=== PATIENT | female | born 2000 | race Caucasian/White ===

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

== ENCOUNTER → 2018-01-17 | Outpatient (CLI) | payer SELFPAY ==
--- NOTE | 2018-01-17 10:46 | Diagnostic Imaging Report ---
INDICATION: Low back pain, trauma. COMPARISON: None. FINDINGS: Three views of the lumbar column demonstrate normal alignment. There is no subluxation or fracture. No degeneration or osseous lesion. IMPRESSION: Negative lumbar spine. Dictated by: Dictated on workstation # [id number]
--- NOTE | 2018-01-17 10:46 | Diagnostic Imaging Report ---
INDICATION: Neck pain and trauma. COMPARISON: None. FINDINGS: Three views of the cervical column demonstrate normal alignment. There is no subluxation or fracture. No degeneration. IMPRESSION: Negative cervical spine. Dictated by: Dictated on workstation # [id number]
--- NOTE | 2018-01-17 10:46 | Diagnostic Imaging Report ---
INDICATION: Mid back pain and trauma. COMPARISON: None. FINDINGS: Three views of the thoracic column demonstrate normal alignment. There is no subluxation or fracture. No degeneration. IMPRESSION: Negative thoracic spine. Dictated by: Dictated on workstation # [id number]
== END ==
LOC: RAD 09:20
PROVIDERS: ATTEND Nurse Practitioner Family
DX: T14.8XXA Other injury of unspecified body region, initial encounter (principal)
CPT/HCPCS: 72040; 72072; 72100

== ENCOUNTER 2022-05-02 20:34 | Emergency (ER) | payer SELFPAY ==
[~2022-05-02] VITALS: Ht 155 cm; Wt 152.0 kg
[~2022-05-02 20:34] MED LIST changes: -SULF1TAB35 PO; +SULF1TAB38 PO
--- NOTE | 2022-05-02 21:06 | ED Abdominal Pain ---
General Chief Complaint: Abdominal/GI Problems Stated Complaint: UPPER ABD PAIN Nursing Triage Note: c/o cramping epigastric pain radiating to ruq today. Source of Information: Patient History of Present Illness Date Seen by Provider: May 02, 2022 Time Seen by Provider: 20:52 Initial Comments PT ARRIVES VIA POV FROM HOME C/O ABDOMINAL PAIN SINCE THIS MORNING PAIN IS IN EPIGASTRIC AREA, AND RADIATES TO RUQ AND AROUND TO RIGHT BACK PAIN IS CONSTANT, AND NOTHING WORSENS OR IMPROVES PAIN HAS NOT TAKEN ANYTHING FOR PAIN + NAUSEA, NO VOMITING HAD A NORMAL BM TODAY NO URINARY SYMPTOMS NO MANAGER SIMULATION SYMPTOMS NO FEVER NO COUGH OR SHORTNESS OF BREATH NO CHEST PAIN LAST ATE A COUPLE OF HOURS AGO LMP 04/18/22. NORMAL. NO CONTROL HAS NOT TAKEN ANYTHING FOR PAIN DENIES HISTORY OF SIMILAR NO PRIOR ABDOMINAL SURGERIES NO GI//MANAGER SIMULATION PROBLEMS DOES NOT TAKE ANY MEDICATIONS FOR ANYTHING. DENIES ANY MEDICAL PROBLEMS OF ANY KIND ON REVIEW OF OLD RECORDS, PT WAS SEEN HERE IN NOVEMBER OF THIS YEAR FOR THIS SAME COMPLAINT AND HAD CT AND ULTRASOUND DONE, AND SHOWED [facility] AND WAS REFERRED TO DR. GILBERT PT NEVER FOLLOWED UP INSTRUCTED. [facility]--HAS NEVER SEEN A PROVIDER FOR ROUTINE MEDICAL CARE Allergies and Home Medications Allergies Coded Allergies: Penicillins (Unverified Allergy, Mild, 03/08/09) Patient Home Medication List Home Medication List Reviewed: Yes Dicyclomine HCl (Dicyclomine HCl) 20 Mg Tablet, 20 MG PO Q6H Prescribed by: STELLA GUERRERO on 05/02/222157 Hyoscyamine Sulfate (Levsin-Sl) 0.125 Mg Tab.subl, 0.25 MG SL Q4H Prescribed by: STELLA GUERRERO on 05/02/222157 Ondansetron (Ondansetron Odt) 4 Mg Tab.rapdis, 4 MG PO Q4H Prescribed by: STELLA GUERRERO on 05/02/222157 Discontinued Medications Cetirizine Hcl (Zyrtec) 10 Mg Capsule, 10 MG PO DAILY, (Reported) Discontinued Reason: No Longer Taking Entered as Reported by: PENNY WHITEHEAD on 01/25/14 1252 Last Action: Discontinued Clindamycin Hcl (Clindamycin Hcl) 300 Mg Capsule, 300 MG PO Q6H Discontinued Reason: No Longer Taking Prescribed by: FABIEN GARIBAY on 01/25/14 1436 Last Action: Discontinued Hydrocodone Bit/Acetaminophen (Hydrocodone-Apap 5-325 Tablet) 1 Tab Tablet, 1 TAB PO Q4H PRN for PAIN Discontinued Reason: No Longer Taking Prescribed by: FABIEN GARIBAY on 01/25/14 1437 Last Action: Discontinued Sulfamethoxazole/Trimethoprim (Bactrim Ds Tablet) 1 Each Tablet, 1 EACH PO BID Discontinued Reason: No Longer Taking Prescribed by: TALA JOHNSON on 02/24/171 Last Action: Discontinued [Med For Depression] , DAILY, (Reported) Discontinued Reason: No Longer Taking Entered as Reported by: PENNY WHITEHEAD on 01/25/14 1252 Last Action: Discontinued Review of Systems Review of Systems Constitutional: no symptoms reported Respiratory: No Symptoms Reported Cardiovascular: No Symptoms Reported Gastrointestinal: See HPI, Abdominal Pain; Denies Constipated, Denies Diarrhea; Nausea; Denies Poor Appetite, Denies Vomiting Genitourinary: No Symptoms Reported Musculoskeletal: see HPI, back pain Skin: no symptoms reported Psychiatric/Neurological: No Symptoms Reported Endocrine: No Symptoms Reported Hematologic/Lymphatic: No Symptoms Reported Past Kzezdtd-Boirwv-Wmznok Hx Patient Social History Tobacco Use?: No Substance use?: Yes Substance type: Marijuana Alcohol Use?: No Pt feels they are or have been: No Immunizations Up To Date Tetanus Booster (TDap): Less than 5yrs PED Vaccines UTD: Yes First/Initial COVID19 Vaccinat: x2 Past Medical History Surgery/Hospitalization HX: knee x4, wrist x1 Surgeries: Yes Orthopedic, Tonsillectomy Respiratory: Yes Asthma Cardiac: No Neurological: No : No Last Menstrual Period: Apr 18, 2022 Reproductive Disorders: No Sexually Transmitted Disease: No Genitourinary: No Gastrointestinal: No Musculoskeletal: Yes (ORTHOPEDIC SURGERIES) Endocrine: Yes (MORBIDLY OBESE) Cancer: No Psychosocial: Yes Depression Integumentary: No Blood Disorders: No Physical Exam Vital Signs Vital Signs - First Documented 05/02/22 20:38 Temp 36.4 Pulse 86 Resp 16 B/P (MAP) 186/98 (127) Pulse Ox 99 O2 Delivery Room Air Capillary Refill : Less Than 3 Seconds Height/Weight/BMI Height: 5'1.00" Weight: 280lbs. oz. [id number]; 63.00 BMI Method:Stated General Appearance: WD/WN, no apparent distress, obese (MORBIDLY OBESE), other (WALKS UPRIGHT AND MOVES WITHOUT DIFFICULTY. LAYING OUTSTRETCHED WITH ARMS OVERHEAD. TEXTING/PLAYING AND TALKING ON PHONE THROUGHOUT EXAM AND DURING ER STAY. VERY NON-CHALANT. DOES NOT APPEAR TO BE IN ILL OR TO BE IN ANY DISCOMFORT OR DISTRESS. 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, no motor/sensory deficits, alert, normal mood/affect, oriented x 3 Skin: normal color, warm/dry, tattoos/piercings (TATTOOS) Progress/Results/Core Measures Results/Orders Lab Results Laboratory Tests Test 05/02/22 21:05 Range/Units White Blood Count 10.8 4.3-11.0 10^3/uL Red Blood Count 4.57 3.80-5.11 10^6/uL Hemoglobin 10.5 L 11.5-16.0 g/dL Hematocrit 34 L 35-52 % Mean Corpuscular Volume 74 L 80-99 fL Mean Corpuscular Hemoglobin 23 L 25-34 pg Mean Corpuscular Hemoglobin Concent 31 L 32-36 g/dL Red Cell Distribution Width 13.9 10.0-14.5 % Platelet Count 375 130-400 10^3/uL Mean Platelet Volume 11.4 9.0-12.2 fL Immature Granulocyte % (Auto) 0 % Neutrophils (%) (Auto) 55 42-75 % Lymphocytes (%) (Auto) 37 12-44 % Monocytes (%) (Auto) 6 0-12 % Eosinophils (%) (Auto) 1 0-10 % Basophils (%) (Auto) 1 0-10 % Neutrophils # (Auto) 5.9 1.8-7.8 10^3/uL Lymphocytes # (Auto) 3.9 1.0-4.0 10^3/uL Monocytes # (Auto) 0.7 0.0-1.0 10^3/uL Eosinophils # (Auto) 0.1 0.0-0.3 10^3/uL Basophils # (Auto) 0.1 0.0-0.1 10^3/uL Immature Granulocyte # (Auto) 0.0 0.0-0.1 10^3/uL Urine Color YELLOW Urine Clarity CLEAR Urine pH 7.0 5-9 Urine Specific [place] 1.015 L 1.016-1.022 Urine Protein NEGATIVE NEGATIVE Urine Glucose (UA) NEGATIVE NEGATIVE Urine Ketones NEGATIVE NEGATIVE Urine Nitrite NEGATIVE NEGATIVE Urine Bilirubin NEGATIVE NEGATIVE Urine Urobilinogen 1.0 < = 1.0 MG/DL Urine Leukocyte Esterase 2+ H NEGATIVE Urine RBC (Auto) NEGATIVE NEGATIVE Urine RBC NONE /HPF Urine WBC 0-2 /HPF Urine Squamous Epithelial Cells 2-5 /HPF Urine Crystals NONE /LPF Urine Bacteria NEGATIVE /HPF Urine Casts NONE /LPF Urine Mucus NEGATIVE /LPF Urine Culture Indicated NO Sodium Level 140 135-145 MMOL/L Potassium Level 3.9 3.6-5.0 MMOL/L Chloride Level 104 98-107 MMOL/L Carbon Dioxide Level 23 21-32 MMOL/L Anion Gap 13 5-14 MMOL/L Blood Urea Nitrogen 9 7-18 MG/DL Creatinine 0.76 0.60-1.30 MG/DL Estimat Glomerular Filtration Rate 113 BUN/Creatinine Ratio 12 Glucose Level 87 70-105 MG/DL Calcium Level 8.9 8.5-10.1 MG/DL Corrected Calcium 8.9 8.5-10.1 MG/DL Total Bilirubin 0.3 0.1-1.0 MG/DL Aspartate Amino Transf (AST/SGOT) 20 5-34 U/L Alanine Aminotransferase (ALT/SGPT) 14 0-55 U/L Alkaline Phosphatase 103 40-136 U/L Total Protein 7.3 6.4-8.2 GM/DL Albumin 4.0 3.2-4.5 GM/DL Amylase Level 75 25-125 U/L Lipase 45 8-78 U/L Urine Opiates Screen NEGATIVE NEGATIVE Urine Oxycodone Screen NEGATIVE NEGATIVE Urine Methadone Screen NEGATIVE NEGATIVE Urine Propoxyphene Screen NEGATIVE NEGATIVE Urine Barbiturates Screen NEGATIVE NEGATIVE Ur Tricyclic Antidepressants Screen NEGATIVE NEGATIVE Urine Phencyclidine Screen NEGATIVE NEGATIVE Urine Amphetamines Screen NEGATIVE NEGATIVE Urine Methamphetamines Screen NEGATIVE NEGATIVE Urine Benzodiazepines Screen NEGATIVE NEGATIVE Urine Cocaine Screen NEGATIVE NEGATIVE Urine Cannabinoids Screen POSITIVE H NEGATIVE My Orders Orders - STELLA GUERRERO DO Ed Iv/Invasive Line Start (05/02/22 20:59) Urine Bedside (05/02/22 20:59) Amylase (05/02/22 20:59) Cbc With Automated Diff (05/02/22 20:59) Comprehensive Metabolic Panel (05/02/22 20:59) Lipase (05/02/22 20:59) Ua Culture If Indicated (05/02/22 20:59) Drug Screen Stat (Urine) (05/02/22 21:06) Rx-Hyoscyamine Tab (Rx-Levsin Sl) (05/02/22 21:57) Rx-Dicyclomine Capsule (Rx-Bentyl Capsul (05/02/22 21:57) Rx-Ondansetron Po (Rx-Zofran Po) (05/02/22 21:57) Vital Signs/I&O 05/02/22 05/02/22 20:38 22:01 Temp 36.4 36.3 Pulse 86 79 Resp 16 16 B/P (MAP) 186/98 (127) 174/88 Pulse Ox 99 100 O2 Delivery Room Air Room Air Blood Pressure Mean: 127 Progress Progress Note : Progress Note UNEVENTFUL ER STAY Departure Impression Primary Impression: RUQ pain Additional Impressions: Biliary colic Hx of gallstones Marijuana use Disposition: 01 HOME, SELF-CARE Condition: Stable Departure-Patient Inst. Decision time for Depature: 21:55 Referrals: KUSH GILBERT DO [facility] Patient Instructions: Gallstones ED Add. Discharge Instructions: CLEAR LIQUIDS--WATER, BROTH, JELLO, GATORADE NO FOOD UNTIL YOUR PAIN IS GONE, THEN START A BRATS DIET--BANANAS, RICE, APPLESAUCE, TOAST, SALTINES--AND CONTINUE CLEAR LIQUIDS FOLLOW UP WITH DR. GILBERT THIS WEEK--CALL IN THE MORNING TO SCHEDULE APPOINTMENT All discharge instructions reviewed with patient and/or family. Voiced understanding. Scripts Ondansetron (Ondansetron Odt) 4 Mg Tab.rapdis 4 MG PO Q4H for Nausea/Vomiting, #10 TAB Prov: STELLA GUERRERO DO 05/02/22 Dicyclomine HCl (Dicyclomine HCl) 20 Mg Tablet 20 MG PO Q6H for Abdominal Pain, #20 TAB Prov: STELLA GUERRERO DO 05/02/22 Hyoscyamine Sulfate (Levsin-Sl) 0.125 Mg Tab.subl 0.25 MG SL Q4H, #10 TAB Prov: STELLA GUERRERO DO 05/02/22 STELLA GUERRERO DO May 02, 2022 21:06
[2022-05-02 21:14] LABS: BASOPHILS # (AUTO) 0.1 10^3/uL (0.0-0.1); BASOPHILS % (AUTO) 1 % (0-10); BILIRUBIN,URINE NEGATIVE (NEGATIVE); CLARITY,URINE CLEAR; COLOR,URINE YELLOW; EOSINOPHILS # (AUTO) 0.1 10^3/uL (0.0-0.3); EOSINOPHILS % (AUTO) 1 % (0-10); GLUCOSE, URINE (UA) NEGATIVE (NEGATIVE); HEMATOCRIT 34 % (35-52); HEMOGLOBIN 10.5 g/dL (11.5-16.0); KETONES,URINE NEGATIVE (NEGATIVE); LEUKOCYTE ESTERASE ,URINE 2+ (NEGATIVE); LYMPHOCYTES # (AUTO) 3.9 10^3/uL (1.0-4.0); LYMPHOCYTES % (AUTO) 37 % (12-44); MEAN CORPUSCULAR HEMOGLOBIN 23 pg (25-34); MEAN CORPUSCULAR HGB CONC 31 g/dL (32-36); MEAN CORPUSCULAR VOLUME 74 fL (80-99); MEAN PLATELET VOLUME 11.4 fL (9.0-12.2); MONOCYTES # (AUTO) 0.7 10^3/uL (0.0-1.0); MONOCYTES % (AUTO) 6 % (0-12); NEUTROPHILS # (AUTO) 5.9 10^3/uL (1.8-7.8); NEUTROPHILS % (AUTO) 55 % (42-75); NITRITE,URINE NEGATIVE (NEGATIVE); PLATELET COUNT 375 10^3/uL (130-400); PROTEIN,URINE NEGATIVE (NEGATIVE); WHITE BLOOD COUNT 10.8 10^3/uL (4.3-11.0)
[2022-05-02 21:23] LABS: BACTERIA,URINE NEGATIVE /HPF; WBC,URINE 0-2 /HPF
[2022-05-02 21:28] LABS: POTASSIUM 3.9 MMOL/L (3.6-5.0)
[2022-05-02 21:29] LABS: CALCIUM 8.9 MG/DL (8.5-10.1)
[2022-05-02 21:30] LABS: TOTAL PROTEIN 7.3 GM/DL (6.4-8.2)
[2022-05-02 21:32] LABS: BILIRUBIN,TOTAL 0.3 MG/DL (0.1-1.0)
[2022-05-02 21:34] LABS: CREATININE SERUM 0.76 MG/DL (0.60-1.30)
[2022-05-02 21:38] LABS: AMPHETAMINE SCREEN, URINE NEGATIVE (NEGATIVE); BARBITURATE SCREEN URINE NEGATIVE (NEGATIVE); BENZODIAZEPINES SCREEN URINE NEGATIVE (NEGATIVE); CANNABINOID SCREEN, URINE POSITIVE (NEGATIVE); COCAINE SCREEN URINE NEGATIVE (NEGATIVE); METHADONE STAT NEGATIVE (NEGATIVE); OPIATE SCREEN URINE NEGATIVE (NEGATIVE); OXYCODONE STAT NEGATIVE (NEGATIVE); PROPOXYPHENE STAT NEGATIVE (NEGATIVE); TRICYCLIC ANTIDEPRESSANTS SCRE NEGATIVE (NEGATIVE)
[2022-05-02] MEDS ORDERED: RX-HYOSCYAMINE 0.125 MG SL (LEVSIN) PPK#6 SL STA (21:57)
[2022-05-02] MEDS ORDERED: RX-DICYCLOMINE 10 MG (BENTYL) CAP PPK#4 PO STA (21:57)
[2022-05-02] MEDS ORDERED: RX-ONDANSETRON 4 MG ODT (ZOFRAN) PPK #4 PO STA (21:57)
[2022-05-02] MEDS ORDERED: DICY20TA PO (21:58)
[2022-05-02] MEDS ORDERED: HYOS0.1283 SL (21:58)
[2022-05-02] MEDS ORDERED: ONDA4TAB11 PO (21:58)
[2022-05-02 22:01] VITALS: BP 174/88
== END 2022-05-02 22:01 | disposition home or self-care (01) ==
LOC: EDUNIT# 20:34 → ER 20:36
DX: F12.90 Cannabis use, unspecified, uncomplicated (principal); K80.50 Calculus of bile duct without cholangitis or cholecystitis without obstruction; E66.01 Morbid (severe) obesity due to excess calories; Z68.44 Body mass index [BMI] 60.0-69.9, adult
CPT/HCPCS: 36415; 80053; 80306; 81000; 82150; 83690; 84703; 85025

== ENCOUNTER 2022-06-23 05:32 | Outpatient (CLI) | payer OTHER ==
[~2022-06-23] VITALS: Ht 157.5 cm; Wt 160.1 kg
[~2022-06-23 05:32] MED LIST changes: +DICY20TA PO; +HYOS0.1283 SL; +ONDA4TAB11 PO
== END 2022-06-24 11:15 | disposition home or self-care (01) ==
LOC: PREOP 05:32
PROVIDERS: ATTEND Surgery
DX: Z01.818 Encounter for other preprocedural examination (principal)

== ENCOUNTER 2022-06-30 08:22 | Day surgery (SDC) | payer OTHER ==
[~2022-06-30] VITALS: Ht 157.4 cm; Wt 160.1 kg
[2022-06-30] VITALS (10 sets, daily range): BP systolic 122–135; BP diastolic 68–83
[2022-06-30] MEDS ORDERED: BUPIVACAINE 0.25% 30 ML (SENSORCAINE) VIAL ONE (08:35)
--- NOTE | 2022-06-30 08:40 | Progress Note-Pre Operative ---
Pre-Operative Progress Note Date of Available H&P: Jun 21, 2022 Date H&P Reviewed: Jun 30, 2022 Time H&P Reviewed: 08:39 History & Physical: H&P Reviewed, Patient Examed, No changes noted Pre-Operative Diagnosis: cholelithiasis KUSH GILBERT DO Jun 30, 2022 08:40
[2022-06-30] MEDS ORDERED: CLINDAMYCIN 600 MG/50 ML IVPB 50 ML IV ONE ×2 (09:12→09:30)
[2022-06-30] MEDS: LACTATED RINGERS 1,000 ML IV PRN ×2 (09:17→10:57)
[2022-06-30] MEDS ORDERED: ROCURONIUM 10 MG/ML 5 ML SYRINGE IV ONE (09:40)
[2022-06-30] MEDS ORDERED: LIDOCAINE PF 2% 5 ML (XYLOCAINE) VIAL ONE (09:40)
[2022-06-30] MEDS ORDERED: fentaNYL INJ 100 MCG/2 ML AMP ONE ×2 (09:40→10:42)
[2022-06-30] MEDS ORDERED: SEVOFLURANE (ULTANE) 15 ML INHAL SOLN ONE ×2 (09:40→11:23)
[2022-06-30] MEDS ORDERED: proPOfol 200 MG/20 ML (DIPRIVAN) VIAL IV ONE (09:40)
[2022-06-30] MEDS ORDERED: MIDAZOLAM 2 MG/2 ML (VERSED) VIAL ONE (09:40)
[2022-06-30] MEDS ORDERED: ONDANSETRON 4 MG/2 ML (SDV) Z0FRAN ONE ×2 (09:40→13:32)
[2022-06-30] MEDS ORDERED: EPINEPHrine INJECTION 1 MG/ML AMP ONE (10:25)
[2022-06-30] MEDS ORDERED: IOHEXOL 300 MG/ML 30 ML (OMNIPAQUE 300) VIAL INJ ONE (11:03)
[2022-06-30] MEDS ORDERED: ACHD5005 PO (11:38)
[2022-06-30] MEDS ORDERED: DOCU-143 PO (11:38)
--- NOTE | 2022-06-30 11:41 | Discharge Inst-Simple/Standard ---
Discharge Inst-Standard Patient Instructions/Follow Up Plan of Care/Instructions/FU: 2 weeks saray Activity as Tolerated: No Discharge Diet: Regular Diet Other Inst to Patient Follow up Appt: Make appointment for 2 weeks. Instructions: No lifting greater than 10 pounds. No strenuous activity. May shower in 24 hours, no tub bath or soaking. Use incentive spirometer at home as directed. No Smoking Skin/Wound Care: You have special glue over incision, it will fall off on it's own. Symptoms to Report: Appetite Changes, Extremity Discoloration, Numbness/Tingling, Swelling Increased, Bleeding Excessive, Eyesight Changes, Pain Increased, Urine Color Change, Constipation(Persistent), Fever over 101 degree F, Pain/Pressure in chest, Urinating Difficulty, Cough Up/Vomit Blood, Heart Beat Irreg/Pounding, Pain/Pressure in jaw, Vaginal Bleeding Increase, Cramps in feet or legs, Lightheadedness, Pain/Pressure in shoulder, Diarrhea(Persistent), Memory Changes Suddenly, Questions/Concerns, Weight gain consecutive days, Dizziness/Fainting, Nausea/Vomiting, Shortness of Breath, Weight gain over 2 pounds. If eyes or skin turn yellow notify physician. If questions or concerns contact your physician Or seek help at emergency department. KUSH GILBERT DO Jun 30, 2022 11:41
--- NOTE | 2022-06-30 11:47 | Progress Note-Post Operative ---
Post-Operative Progess Note Surgeon (s)/[place] (s) Surgeon KUSH GILBERT DO [place]: Dr. guzman to assist in retraction dissection and closure. Pre-Operative Diagnosis cholelithiasis, morbid obesity Post-Operative Diagnosis same Procedure & Operative Findings Date of Procedure 06/30/22 Procedure Performed/Findings PROCEDURE: Laparoscopic cholecystectomy with intraoperative cholangiogram. COMPLICATIONS: None. PROCEDURE: The patient was taken to the operating suite and was prepped and draped in sterile fashion. A surgical pause was performed. Just superior to the umbilicus, a 12 mm incision was made. Dissection was taken down to the fascia, which was then scored and grasped with a Quin and the abdomen was then entered. A 0 Vicryl suture was placed in a [id number] fashion and a Darling trocar was placed and secured. Pneumoperitoneum was achieved. A 5mm trochar place in the subxyphoid and 2 in the right upper quadrant. The gallbladder was then grasped and elevated. The cystic duct, and cystic artery were then dissected out. Clip was placed on the distal portion of the cystic duct which was then partially transected. An arrow catheter was inserted into the duct. The cholangiogram was then performed. No filing defects and contrast made its way into the duodenum. Catheter removed. Clips were placed on proximal portion of the cystic duct and then the duct was then transected. Clips were placed along the proximal and distal portion of the cystic artery which was then transected. Hook cautery was used to dissect the gallbladder from the gallbladder fossa achieving hemostasis. The gallbladder was placed in an Endobag and removed through the 12 mm trocar site. The abdomen was then reinspected. Copious amounts of irrigation were used to irrigate the abdomen and there were no signs of active bleeding. Hemostasis had been achieved. The 12 mm fascial defect was then closed with 0 Vicryl suture that had been placed in a [id number] fashion. The abdomen was then desufflated, the trocars were removed. The abdomen was then washed and dried. The skin was then closed using 4-0 Monocryl in a subcuticular fashion. The abdomen was washed and dried and Skin Affix was place over incisions. Patient tolerated the procedure well without any complications and was taken to the recovery room in stable condition. Anesthesia Type general Estimated Blood Loss Estimated blood loss (mL): minimal Specimens/Packing Specimens Removed gallbladder KUSH GILBERT DO Jun 30, 2022 11:47
[2022-06-30] MEDS ORDERED: fentaNYL INJ 100 MCG/2 ML AMP IVP ONE (12:00)
[2022-06-30] MEDS ORDERED: morphine INJ 10 MG/ML 1ML (SYR OR VIAL) IVP ONE (12:00)
[2022-06-30] MEDS ORDERED: ONDANSETRON 4 MG/2 ML (SDV) Z0FRAN IVP PRN (12:00)
[2022-06-30] MEDS ORDERED: MEPERIDINE (DEMEROL) INJ 50 MG/ML IVP ONE (12:00)
--- NOTE | 2022-06-30 12:01 | Anesthesia-General Post-Op ---
General Patient Condition Mental Status/LOC: Same as Preop Cardiovascular: Satisfactory Nausea/Vomiting: Absent Respiratory: Satisfactory Pain: Controlled Complications: Absent Post Op Complications Complications None Follow Up Care/Instructions Patient Instructions None needed. Anesthesia/Patient Condition Patient Condition Patient is doing well, no complaints, stable vital signs, no apparent adverse anesthesia problems. No complications reported per nursing. JULIA RYAN CRNA Jun 30, 2022 12:01
[2022-06-30] MEDS ORDERED: morphine INJ 10 MG/ML 1ML (SYR OR VIAL) ONE (12:07)
[2022-06-30] MEDS ORDERED: HYDROcodone/APAP 5 MG/325 MG (LORTAB) TAB PO ONE (13:00)
[2022-06-30] MEDS ORDERED: HYDROcodone/APAP 5 MG/325 MG (LORTAB) TAB ONE (13:03)
[2022-06-30] MEDS ORDERED: ONDANSETRON 4 MG/2 ML (SDV) Z0FRAN IVP ONE (13:45)
--- NOTE | 2022-06-30 17:27 | Diagnostic Imaging Report ---
History: 21 years-old female with cholangiogram following laparoscopic cholecystectomy. Comparison: None. Technique: 33 intraoperative fluoroscopic images of the abdomen in the frontal projection. Fluoroscopic Time: 16.9 seconds. Findings: Intraoperative fluoroscopic images were obtained during injection of contrast into the biliary tract. The common bile duct does not appear distended and no filling defects are seen. Contrast flows into the small bowel. Impression: Fluoroscopic intraoperative images obtained during cholangiogram with no biliary dilatation or obstruction seen. Dictated by: Dictated on workstation # [id number]
== END 2022-06-30 13:50 ==
LOC: SDC 08:22
PROVIDERS: ATTEND Surgery
DX: K80.10 Calculus of gallbladder with chronic cholecystitis without obstruction (principal); E66.01 Morbid (severe) obesity due to excess calories; Z68.44 Body mass index [BMI] 60.0-69.9, adult; F12.90 Cannabis use, unspecified, uncomplicated
CPT/HCPCS: 76000; 84703; 87081; 88304

== ENCOUNTER 2023-06-29 20:37 | Emergency (ER) | payer OTHER ==
[~2023-06-29] VITALS: Ht 155 cm; Wt 135.0 kg
[~2023-06-29 20:37] MED LIST changes: +ACHD5005 PO; +DOCU-143 PO
[2023-06-29 20:57] VITALS: BP 114/68
[2023-06-29 21:17] LABS: BASOPHILS # (AUTO) 0.1 10^3/uL (0.0-0.1); BASOPHILS % (AUTO) 1 % (0-10); EOSINOPHILS # (AUTO) 0.2 10^3/uL (0.0-0.3); EOSINOPHILS % (AUTO) 3 % (0-10); HEMATOCRIT 39 % (35-52); HEMOGLOBIN 12.2 g/dL (11.5-16.0); LYMPHOCYTES # (AUTO) 2.9 10^3/uL (1.0-4.0); LYMPHOCYTES % (AUTO) 35 % (12-44); MEAN CORPUSCULAR HEMOGLOBIN 24 pg (25-34); MEAN CORPUSCULAR HGB CONC 31 g/dL (32-36); MEAN CORPUSCULAR VOLUME 77 fL (80-99); MONOCYTES # (AUTO) 0.5 10^3/uL (0.0-1.0); MONOCYTES % (AUTO) 6 % (0-12); NEUTROPHILS # (AUTO) 4.7 10^3/uL (1.8-7.8); NEUTROPHILS % (AUTO) 56 % (42-75); PLATELET COUNT 328 10^3/uL (130-400); WHITE BLOOD COUNT 8.4 10^3/uL (4.3-11.0)
[2023-06-29 21:25] LABS: ALBUMIN 4.1 GM/DL (3.2-4.5); POTASSIUM 3.9 MMOL/L (3.6-5.0)
[2023-06-29 21:26] LABS: CALCIUM 8.7 MG/DL (8.5-10.1)
[2023-06-29 21:28] LABS: TOTAL PROTEIN 7.2 GM/DL (6.4-8.2)
[2023-06-29 21:29] LABS: BILIRUBIN,TOTAL 0.5 MG/DL (0.1-1.0)
[2023-06-29 21:31] LABS: CREATININE SERUM 0.73 MG/DL (0.60-1.30)
[2023-06-29 22:00] LABS: BACTERIA,URINE LARGE /HPF; BILIRUBIN,URINE NEGATIVE (NEGATIVE); CLARITY,URINE CLEAR; COLOR,URINE YELLOW; GLUCOSE, URINE (UA) NEGATIVE (NEGATIVE); KETONES,URINE NEGATIVE (NEGATIVE); LEUKOCYTE ESTERASE ,URINE TRACE (NEGATIVE); NITRITE,URINE POSITIVE (NEGATIVE); PH,URINE 5.5 (5-9); PROTEIN,URINE NEGATIVE (NEGATIVE)
[2023-06-29] MEDS ORDERED: CATHETER FLUSH 10 ML SYR IV PRN (22:30)
[2023-06-29] MEDS ORDERED: HOLD METFORMIN - RECEIVED CONTRAST 20 ML VIAL IV SCH (22:30)
[2023-06-29] MEDS ORDERED: IOHEXOL 350 MG/ML 100 ML (OMNIPAQUE 350) VIAL IV ONE (22:30)
[2023-06-29] MEDS ORDERED: NS 100 ML (IVPB) BAG IV ONE (22:30)
[2023-06-29] MEDS ORDERED: cefTRIAXone IV/IM 1,000 MG in NS (IVPB) 50 ML 50 ML IV ONE (23:00)
--- NOTE | 2023-06-30 00:54 | ED Abdominal Pain ---
General Chief Complaint: Abdominal/GI Problems Stated Complaint: RT UPPER ABD PAIN Nursing Triage Note: Pt presents with c/o RUQ abdominal pain x1 hour. Pt reports she ate approx 2 hours ago, had gallbladder out 1 year ago today, no complications. Normal BM today, nausea w/o vomiting. Source of Information: Patient History of Present Illness Date Seen by Provider: Jun 29, 2023 Time Seen by Provider: 21:01 Initial Comments PT ARRIVES VIA POV FROM HOME C/O RUQ PAIN X 1 HOUR C/O NAUSEA, NO VOMITING NORMAL BM TODAY NO FEVER NO URINARY SYMPTOMS SHE HAS HAD MILD NON-PRODUCTIVE COUGH FOR A COUPLE OF DAYS NO SHORTNESS OF BREATH NO CHEST PAIN HAS NOT TAKEN ANYTHING FOR PAIN ATE 2 HOURS AGO PT HAD CHOLECYSTECTOMY 1 YEAR AGO TODAY. NO OTHER ABDOMINAL SURGERIES OR GI PROBLEMS LMP--2 MONTHS AGO, NO CONTROL. PERIODS ALWAYS IRREGULAR PCP: [facility]--GOES TO WALK IN CLINIC FOR ALL MEDICAL CARE, HAS NEVER ESTABLISHED WITH PRIMARY CARE THERE OR HAD ROUTINE / WELLNESS EXAMS Allergies and Home Medications Allergies Coded Allergies: Penicillins (Unverified Allergy, Severe, FEVER/SEIZURES/HIVES, 06/30/22) latex (Verified Allergy, Unknown, Rash, 06/30/22) Patient Home Medication List Home Medication List Reviewed: Yes Cefdinir (Cefdinir) 300 Mg Capsule, 300 MG PO BID Prescribed by: STELLA GUERRERO on 06/30/23148 Docusate Sodium (Colace) 100 Mg Capsule, 100 MG PO DAILY Prescribed by: KUSH GILBERT on 06/30/22 1138 Hydrocodone/Acetaminophen (Hydrocodone-Acetamin 5-325 mg) 5 Mg-325 Mg Tablet, 1 EACH PO Q4H PRN for PAIN-MODERATE (5-7) Prescribed by: KUSH GILBERT on 06/30/22 1139 Ketorolac Tromethamine (Ketorolac Tromethamine) 10 Mg Tablet, 10 MG PO Q6H Prescribed by: STELLA GUERRERO on 06/30/23 014 Ondansetron (Ondansetron Odt) 8 Mg Tab.rapdis, 8 MG PO Q6H Prescribed by: STELLA GUERRERO on 06/30/23 014 Review of Systems Review of Systems Constitutional: no symptoms reported EENTM: No Symptoms Reported Respiratory: See HPI, Cough; Denies Shortness of Air Cardiovascular: No Symptoms Reported Gastrointestinal: See HPI, Abdominal Pain; Denies Diarrhea; Nausea; Denies Poor Appetite, Denies Vomiting Genitourinary: No Symptoms Reported Musculoskeletal: no symptoms reported Skin: no symptoms reported Psychiatric/Neurological: No Symptoms Reported Endocrine: No Symptoms Reported Hematologic/Lymphatic: No Symptoms Reported Past Usuvoyv-Rxdifz-Gxworq Hx Patient Social History Tobacco Use?: No Use of E-Cig and/or Vaping dev: No Substance use?: Yes Substance type: Marijuana Alcohol Use?: No Immunizations Up To Date Tetanus Booster (TDap): Unknown PED Vaccines UTD: Yes Influenza Vaccine Up-to-Date: No; Not Current First/Initial COVID19 Vaccinat: unk Seasonal Allergies Seasonal Allergies: No Past Medical History Surgery/Hospitalization HX: knee x4, wrist x1 Surgeries: Yes (RIGHT WRIST FX/ORIF, 2 BILATERAL KNEE SCOPES;LAP SHANNA 06/30/22) Gallbladder, Orthopedic, Tonsillectomy Respiratory: Yes (NO MEDS) Asthma Cardiac: No Neurological: Yes Headaches /Migraines : No Last Menstrual Period: May 04, 2023 Reproductive Disorders: Yes Female Reproductive Disorders: Menstrual Problems Sexually Transmitted Disease: No Genitourinary: No Gastrointestinal: Yes (S/P SHANNA 06/30/22) Gastroesophageal Reflux, Gall Bladder Disease Musculoskeletal: Yes (ORTHOPEDIC ;R WRIST FX/ORIF; BILAT KNEE SCOPES X 2 EACH) Fractures Endocrine: Yes (MORBIDLY OBESE) HEENT: No Cancer: No Psychosocial: Yes Anxiety, Depression Integumentary: No Blood Disorders: No Physical Exam Vital Signs Capillary Refill : Less Than 3 Seconds Height/Weight/BMI Height: 5'1.00" Weight: 280lbs. oz. [id number]; 56.00 BMI Method:Stated General Appearance: WD/WN, no apparent distress, obese, other (DOES NOT APPEAR ILL OR TO BE IN ANY DISCOMFORT OR DISTRESS. WALKS UPRIGHT AND MOVES WITHOUT DIFFICULTY. 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, no motor/sensory deficits, alert, normal mood/affect, oriented x 3 Skin: normal color, warm/dry; No rash Progress/Results/Core Measures Results/Orders Lab Results Laboratory Tests Test 06/29/23 20:47 06/29/23 21:05 06/29/23 22:13 Range/Units Urine Color YELLOW Urine Clarity CLEAR Urine pH 5.5 5-9 Urine Specific [place] >=1.030 1.016-1.022 Urine Protein NEGATIVE NEGATIVE Urine Glucose (UA) NEGATIVE NEGATIVE Urine Ketones NEGATIVE NEGATIVE Urine Nitrite POSITIVE H NEGATIVE Urine Bilirubin NEGATIVE NEGATIVE Urine Urobilinogen 1.0 < = 1.0 MG/DL Urine Leukocyte Esterase TRACE H NEGATIVE Urine RBC (Auto) NEGATIVE NEGATIVE Urine RBC NONE /HPF Urine WBC 5-10 H /HPF Urine Squamous Epithelial Cells 5-10 /HPF Urine Crystals NONE /LPF Urine Bacteria LARGE H /HPF Urine Casts NONE /LPF Urine White Blood Cell Casts /LPF Urine Mucus NEGATIVE /LPF Urine Culture Indicated YES White Blood Count 8.4 4.3-11.0 10^3/uL Red Blood Count 5.11 3.80-5.11 10^6/uL Hemoglobin 12.2 11.5-16.0 g/dL Hematocrit 39 35-52 % Mean Corpuscular Volume 77 L 80-99 fL Mean Corpuscular Hemoglobin 24 L 25-34 pg Mean Corpuscular Hemoglobin Concent 31 L 32-36 g/dL Red Cell Distribution Width 15.7 H 10.0-14.5 % Platelet Count 328 130-400 10^3/uL Mean Platelet Volume 12.0 9.0-12.2 fL Immature Granulocyte % (Auto) 0 % Neutrophils (%) (Auto) 56 42-75 % Lymphocytes (%) (Auto) 35 12-44 % Monocytes (%) (Auto) 6 0-12 % Eosinophils (%) (Auto) 3 0-10 % Basophils (%) (Auto) 1 0-10 % Neutrophils # (Auto) 4.7 1.8-7.8 10^3/uL Lymphocytes # (Auto) 2.9 1.0-4.0 10^3/uL Monocytes # (Auto) 0.5 0.0-1.0 10^3/uL Eosinophils # (Auto) 0.2 0.0-0.3 10^3/uL Basophils # (Auto) 0.1 0.0-0.1 10^3/uL Immature Granulocyte # (Auto) 0.0 0.0-0.1 10^3/uL Sodium Level 137 135-145 MMOL/L Potassium Level 3.9 3.6-5.0 MMOL/L Chloride Level 104 98-107 MMOL/L Carbon Dioxide Level 26 21-32 MMOL/L Anion Gap 7 5-14 MMOL/L Blood Urea Nitrogen 11 7-18 MG/DL Creatinine 0.73 0.60-1.30 MG/DL Estimat Glomerular Filtration Rate 118 BUN/Creatinine Ratio 15 Glucose Level 86 70-105 MG/DL Calcium Level 8.7 8.5-10.1 MG/DL Corrected Calcium 8.6 8.5-10.1 MG/DL Total Bilirubin 0.5 0.1-1.0 MG/DL Aspartate Amino Transf (AST/SGOT) 19 5-34 U/L Alanine Aminotransferase (ALT/SGPT) 23 0-55 U/L Alkaline Phosphatase 89 40-136 U/L Total Protein 7.2 6.4-8.2 GM/DL Albumin 4.1 3.2-4.5 GM/DL Amylase Level 78 25-125 U/L Lipase 30 8-78 U/L Serum Test, Qualitative NEGATIVE NEGATIVE Influenza Type A (RT-PCR) Not Detected Not Detecte Influenza Type B (RT-PCR) Not Detected Not Detecte SARS-CoV-2 RNA (RT-PCR) Not Detected Not Detecte My Orders Orders - STELLA GUERRERO DO Ed Iv/Invasive Line Start (06/29/23 21:09) Amylase (06/29/23 21:09) Cbc And Automated Diff (06/29/23 21:09) Comprehensive Metabolic Panel (06/29/23 21:09) Hcg,Qualitative Serum (06/29/23 21:09) Lipase (06/29/23 21:09) Ua Culture If Indicated (06/29/23 21:09) Covid 19 Inhouse Test (06/29/23 21:43) Influenza A And B By Pcr (06/29/23 21:43) Chest 1 View, Ap/Pa Only (06/29/23 21:43) Ct Chest/Abdomen/Pelvis W (06/29/23 21:43) Urine Culture (06/29/23 20:47) Iohexol Injection (Omnipaque 350 Mg/Ml 1 (06/29/23 22:30) Received Contrast (Hold Metformin- Contr (06/29/23 22:30) Sodium Chloride Flush (Catheter Flush Sy (06/29/23 22:30) Ns (Ivpb) 100 Ml (Sodium Chloride 0.9% 1 (06/29/23 22:30) Ceftriaxone Iv/Im (Ceftriaxone Iv/Im) (06/29/23 23:00) Ketorolac Injection (Ketorolac Injection (06/30/23 01:45) Rx-Cefdinir Capsule (Rx-Omnicef Capsule) (06/30/23 09:00) Rx-Ondansetron Po (Rx-Zofran Po) (06/30/23 01:49) Medications Given in ED Current Medications Medications Dose Ordered Sig/Kerry Route Start Time Stop Time Status Last Admin Dose Admin Ceftriaxone Sodium 1000 mg/ Sodium Chloride 50 ml @ 100 mls/hr ONCE ONCE IV 06/29/23 23:00 06/29/23 23:29 DC 06/29/23 23:12 100 MLS/HR Iohexol 100 ml ONCE ONCE IV 06/29/23 22:30 06/29/23 22:31 DC 06/29/23 22:22 80 ML Sodium Chloride 10 ml NEEDED PRN IV 06/29/23 22:30 06/29/23 22:22 10 ML Sodium Chloride 100 ml ONCE ONCE IV 06/29/23 22:30 06/29/23 22:31 DC 06/29/23 22:22 80 ML Blood Pressure Mean: 83 Progress Progress Note : Progress Note VITALS STABLE, AFEBRILE GIVEN: -IV FLUIDS -ZOFRAN -TORADOL -ROCEPHIN LABS: -CBC NORMAL -CMP NORMAL -AMYLASE/LIPASE NORMAL -HCG NEGATIVE -UA WITH TRACE LEUKOCYTES, 5-10 WBC, LARGE BACTERIA--URINE CULTURE PENDING -COVID/FLU NEGATIVE NO COUGH AT ANY TIME NO DYSPNEA NO HYPOXIA NO VOMITING PLAYING ON PHONE FOR ENTIRE ER STAY VERY MARKED DELAY IN OBTAINING CT RESULTS CT SCAN WITH MILD BILATERAL NODULAR INFILTRATES, FATTY LIVER. NO ACUTE INTRA- ABDOMINAL PROCESS CXR UNREMARKABLE, PENDING RADIOLOGIST REVIEW DISCUSSED TEST RESULTS, ANTICIPATED COURSE, SYMPTOMATIC TREATMENT, MEDICATIONS, DIET, NEED FOR FOLLOW UP AND RETURN PRECAUTIONS REVIEWED PRIOR RECORDS, INCLUDING ER RECORDS, ADMITS/H&P'S/CONSULTS/DISCHARGE SUMMARIES, TESTS/PROCEDURES Diagnostic Imaging Comments CXR--NO ACUTE PROCESS, PENDING RADIOLOGIST REVIEW CT CHEST/ABDOMEN/PELVIS--PER [facility] VIA FAX AT 0146 -MILD BILATERAL PATCHY NODULAR INFILTRATES -LIVER ENLARGED, WITH DECREASED DIFFUSE ATTENUATION--MAY BE DUE TO FATTY INFILTRATION Reviewed: Reviewed by Me Departure Impression Primary Impression: Urinary tract infection Additional Impressions: RUQ abdominal pain BILATERAL INFILTRATES NOTED ON CT SCAN Disposition: HOME, SELF-CARE Condition: Stable Departure-Patient Inst. Decision time for Depature: 01:47 Referrals: NO,LOCAL PHYSICIAN (PCP/Family) Primary Care Physician Patient Instructions: Abdominal Pain, Adult ED, Community-Acquired Pneumonia, Adult (DC), Urinary Tract Infection, Adult ED Add. Discharge Instructions: CLEAR LIQUIDS--WATER, BROTH, JELLO, GATORADE BRATS DIET--BANANAS, RICE, APPLESAUCE, TOAST, SALTINES FOLLOW UP WITH YOUR DR NEXT WEEK FOR FURTHER CARE RETURN TO ER IF SYMPTOMS WORSEN All discharge instructions reviewed with patient and/or family. Voiced understanding. Scripts Ketorolac Tromethamine (Ketorolac Tromethamine) 10 Mg Tablet 10 MG PO Q6H for Pain, #15 TAB Prov: STELLA GUERRERO DO 06/30/23 Ondansetron (Ondansetron Odt) 8 Mg Tab.rapdis 8 MG PO Q6H, #10 TAB Prov: STELLA GUERRERO DO 06/30/23 Cefdinir (Cefdinir) 300 Mg Capsule 300 MG PO BID, #20 CAP Prov: STELLA GUERRERO DO 06/30/23 STELLA GUERRERO DO Jun 30, 2023 00:54
[2023-06-30] MEDS ORDERED: KETOROLAC INJ 30 MG/ML VIAL IVP ONE (01:45)
[2023-06-30] MEDS ORDERED: ONDA8TAB13 PO (01:49)
[2023-06-30] MEDS ORDERED: CEFD300C3 PO (01:49)
[2023-06-30] MEDS ORDERED: KETO10TA PO (01:49)
[2023-06-30] MEDS ORDERED: RX-ONDANSETRON 4 MG ODT (ZOFRAN) PPK #4 PO STA (01:49)
[2023-06-30] MEDS ORDERED: CEFDINIR 300 MG CAPSULE PO ONE ×2 (02:00)
--- NOTE | 2023-06-30 07:36 | Diagnostic Imaging Report ---
PROCEDURE: CT chest, abdomen, and pelvis with contrast. TECHNIQUE: Multiple contiguous axial images were obtained through the chest, abdomen, and pelvis after the administration of intravenous contrast. Auto Exposure Controls were utilized during the CT exam to meet ALARA standards for radiation dose reduction. INDICATION: Right upper quadrant pain and cough. The patient had a cholecystectomy one year previous. COMPARISON is made with prior exam of 11/14/2021. FINDINGS: There is a minimal patchy infiltrate in the right lung base. There is also some patchy infiltrate in the left upper lobe. There are no suspicious pulmonary nodules or masses. There is an additional patchy infiltrate in the right upper lobe. There is no pleural or pericardial fluid. There is no pneumothorax. The heart size is normal. The thoracic aorta is nonaneurysmal. There is no pathologically enlarged adenopathy in the chest. The distal esophagus and stomach are normal. There may be some mild fatty infiltration of the liver. The gallbladder is surgically absent. There is no biliary ductal dilatation. The spleen is normal. The pancreas and adrenal glands are unremarkable. The kidneys are normal. The aorta is nonaneurysmal. The bowel gas pattern is nonspecific. There is no free air. There is no ascites. No focal inflammatory changes. Bladder is normal. There is no pelvic mass, adenopathy or free fluid. The osseous structures are unremarkable. IMPRESSION: Patchy infiltrates with tiny nodules in the upper lobes bilaterally and right lower lobe. These are nonspecific however suspect for an infectious or inflammatory process. Recommend clinical correlation and follow-up imaging, as warranted. Fatty infiltration of the liver. Otherwise, unremarkable CT chest, abdomen and pelvis. Dictated by: Dictated on workstation # [id number]
--- NOTE | 2023-06-30 07:44 | Diagnostic Imaging Report ---
CLINICAL INDICATIONS: Patient with right quadrant pain x1 hour. EXAM: Chest x-ray PA view only. COMPARISON: None. FINDINGS: Lungs/pleura: Lungs are clear. There is no pneumothorax. There is no pleural effusion. Mediastinum: Unremarkable. Pulmonary vasculature: Unremarkable. Heart: Unremarkable. Bones/extrathoracic soft tissue: Unremarkable. IMPRESSION: There is no radiographic evidence of acute cardiopulmonary process. I agree with the Emergency Room clinician's preliminary impression. Dictated by: Dictated on workstation # [id number]
[2023-06-30] MEDS ORDERED: RX-CEFDINIR 300 MG CAP PPK #2 PO SCH (09:00)
== END 2023-06-30 02:13 | disposition home or self-care (01) ==
LOC: EDUNIT# 20:37 → ER 20:42
DX: N39.0 Urinary tract infection, site not specified (principal); R10.11 Right upper quadrant pain; R91.8 Other nonspecific abnormal finding of lung field; E66.01 Morbid (severe) obesity due to excess calories; Z90.49 Acquired absence of other specified parts of digestive tract; Z91.040 Latex allergy status
CPT/HCPCS: 36415; 71045; 71260; 74177; 80053; 81000; 82150; 83690; 84703; 85025; 87077; 87088; 87186; 87636